=== PATIENT | female | born 1995 | race Two or more races ===

== ENCOUNTER → 2018-06-01 | Outpatient (REF) | payer OTHER | LOC: M SFHCLERA 11:08 | PROVIDERS: ATTEND Physician Assistant | DX: Z87.440 Personal history of urinary (tract) infections (principal) ==

== ENCOUNTER → 2018-07-26 | Outpatient (REF) | payer OTHER ==
[2018-07-26 15:44] LABS: CHLAMYDIA DNA AMPLIFICATION NEGATIVE (NEGATIVE); GC DNA AMPLIFICATION NEGATIVE (NEGATIVE)
== END ==
LOC: M LAB REF 12:04
PROVIDERS: ATTEND Physician Assistant
DX: N76.0 Acute vaginitis (principal)

== ENCOUNTER 2018-10-07 16:11 | Emergency (ER) | payer OTHER ==
[2018-10-07] MEDS ORDERED: AMIT75TA PO (16:18)
[2018-10-07] MEDS ORDERED: CVS1CAP2 PO (16:18)
[2018-10-07] MEDS ORDERED: NEXP1IMP SC (16:20)
[2018-10-07] MEDS: GASTROGRAFIN SOLUTION 30ML PO SCH ×2 (16:45→18:18)
[2018-10-07] MEDS ORDERED: NS 500 ML IV ONE (17:45)
[2018-10-07] MEDS ORDERED: KETOROLAC 30 MG/ML VIAL (J1885) IV ONE (17:45)
[2018-10-07 18:49] LABS: BASO % 0.5 % (0.0-1.0); EOS # 0.1 10^3/uL (0.0-0.50); HEMATOCRIT 41.1 % (36.0-47.0); LYMPH # 2.5 10^3/uL (1.5-6.5); LYMPH % 28.2 % (24.0-44.0); MEAN CORPUSCULAR HEMOGLOBIN 29.1 pg (27.0-33.0); MEAN CORPUSCULAR HGB CONC 31.6 g/dl (32.0-36.5); MEAN CORPUSCULAR VOLUME 91.9 fl (80.0-96.0); MONO # 0.5 10^3/uL (0.0-0.8); MONO % 6.2 % (0.0-5.0); NEUTROPHILS # 5.6 10^3/uL (1.8-7.7); NEUTROPHILS % 63.8 % (36.0-66.0); PLATELET COUNT, AUTOMATED 208 10^3/uL (150-450); RED BLOOD COUNT 4.47 10^6/uL (4.00-5.40); WHITE BLOOD COUNT 8.8 10^3/uL (4.0-10.0)
[2018-10-07 19:09] LABS: ALBUMIN 4.1 GM/DL (3.2-5.2); ALT/SGPT 16 U/L (12-78); BILIRUBIN,TOTAL 0.3 MG/DL (0.2-1.0); BLOOD UREA NITROGEN 16 MG/DL (7-18); CARBON DIOXIDE LEVEL 29 MEQ/L (21-32); CHLORIDE LEVEL 105 MEQ/L (98-107); CREATININE FOR GFR 1.02 MG/DL (0.55-1.30); GLOMERULAR FILTRATION RATE > 60.0 (>60); GLUCOSE, FASTING 83 MG/DL (70-100); POTASSIUM SERUM 4.2 MEQ/L (3.5-5.1); SODIUM LEVEL 139 MEQ/L (136-145)
[2018-10-07] MEDS ORDERED: ISOVUE-370 76% 100ML VIAL (Q9967) As Ordered ONE (19:50)
[2018-10-07] MEDS ORDERED: MORPHINE 4 MG/ML 1ML VIAL/SYRINGE (J2270) IV ONE ×2 (20:15→22:30)
--- NOTE | 2018-10-07 20:53 | REPVR ---
EXAM: CT Abdomen and Pelvis With Contrast EXAM DATE/TIME: 10/07/2018 7:49 PM CLINICAL HISTORY: 22 years old, female; Abdominal pain; Additional info: Ruq, rlq pain TECHNIQUE: Imaging protocol: Axial computed tomography images of the abdomen and pelvis with intravenous contrast. Coronal and sagittal reformatted images were created and reviewed. Radiation optimization: All CT scans at this facility use at least one of these dose optimization techniques: automated exposure control; mA and/or kV adjustment per patient size (includes targeted exams where dose is matched to clinical indication); or iterative reconstruction. Contrast material: ISO 370; Contrast volume: 100 ml; Contrast route: IV; COMPARISON: CT ABD PELVIS WITH CONTRAST 01/16/2016 4:16 AM FINDINGS: ABDOMEN: Liver: There is a right liver cyst measuring 4 mm. There is low attenuation adjacent to the falciform ligament of the liver consistent with focal fatty infiltration. Gallbladder and bile ducts: Normal. No calcified stones. No ductal dilation. Pancreas: Normal. No ductal dilation. Spleen: Normal. No splenomegaly. Adrenals: Normal. No mass. Kidneys and ureters: Normal. No hydronephrosis. Stomach and bowel: Normal. No obstruction. No mucosal thickening. Appendix: A normal appendix is seen. PELVIS: Bladder: Unremarkable as visualized. Reproductive: Large right ovarian cyst with a Hounsfield measurement of 9 measuring approximately 4.9 x 4.8 x 7.6 cm. ABDOMEN and PELVIS: Intraperitoneal space: Normal. No free air. No significant fluid collection. Bones/joints: No acute fracture. No dislocation. Soft tissues: Unremarkable. Vasculature: Normal. No abdominal aortic aneurysm. Lymph nodes: Normal. No enlarged lymph nodes. IMPRESSION: 1. Right ovarian cyst measuring 4.9 x 4.8 x 7.6 cm which is new since 01/16/2016. 2. Otherwise negative CT abdomen/pelvis which is otherwise unchanged from the prior study. COMMENT: Consistent with the [employer]'s Incidental Findings Committee Report (J Am Jose Radiol 2010): Unless the patient's specific circumstances suggest otherwise, any liver lesion 0.5 cm or less, any cystic kidney lesion less than 1.0 cm, and/or any adrenal lesion 1.0 cm or less not otherwise characterized in this report as possessing suspicious or indeterminate imaging features is/are highly likely to be benign and do not require follow-up imaging or biopsy. Electronically signed by: Carlos Brown On 10/07/2018 20:52:53 PM
--- NOTE | 2018-10-07 23:06 | REPVR ---
EXAM: US Pelvis Complete, Transabdominal EXAM DATE/TIME: 10/07/2018 10:59 PM CLINICAL HISTORY: 22 years old, female; Pelvic pain; Additional info: Rlq pain, large R ov cyst, ? torsion TECHNIQUE: Imaging protocol: Real-time transabdominal pelvic ultrasound with image documentation. Complete exam. COMPARISON: US PELVIC NON-OB COMPLETE 01/16/2016 1:08 AM FINDINGS: Uterus/cervix: The uterus measures 6.8 cm in its cephalocaudad dimension and 2.6 x 3.3 cm in its AP and lateral dimensions. The endometrium measures 4-5 mm. Right adnexa: Right ovarian simple cyst measuring 3.4 x 4.0 x 4.3 cm. The right ovary measures 5.3 x 4.7 x 6.5 cm and demonstrates blood flow. Left adnexa: The left ovary measures 2.3 x 3.7 x 2.3 cm and demonstrates blood flow. Free fluid: None. Bladder: The urinary bladder appears normal and measures 5.1 x 7.6 x 10.4 cm. IMPRESSION: 1. Right ovarian simple cyst measuring 3.4 x 4.0 x 4.3 cm. 2. Otherwise negative pelvic sonogram. Electronically signed by: Carlos Brown On 10/07/2018 23:06:12 PM
[2018-10-07] MEDS ORDERED: ONDA4TAB6 PO (23:11)
[2018-10-07] MEDS ORDERED: TYLETAB14 PO ×2 (23:11→23:35)
[2018-10-07] MEDS ORDERED: MACR100C43 PO ×2 (23:11→23:35)
[2018-10-07 23:28] VITALS: BP 115/75
[2018-10-07] MEDS ORDERED: REGL10TA6 PO (23:35)
[2018-10-07] MEDS ORDERED: DIFL150T PO (23:35)
[2018-10-07] MEDS ORDERED: NITROFURANTOIN (MACROBID) 100 MG CAP PO ONE (23:45)
--- NOTE | 2018-10-08 14:59 | ED PDOC ---
Post-Departure Follow-Up ft ronni mccray faxed formal report of ct abd/p for fu Samina Sands MD October 08, 2018 14:59
== END 2018-10-07 23:45 | disposition home or self-care (01) ==
LOC: M ED 16:11
DX: N83.201 Unspecified ovarian cyst, right side (principal); N39.0 Urinary tract infection, site not specified; M79.7 Fibromyalgia; Z79.3 Long term (current) use of hormonal contraceptives; Z88.8 Allergy status to other drugs, medicaments and biological substances
CPT/HCPCS: 74177; 76856; 80053; 81001; 84702; 85025; 87088; 87186; 93976; 96361; 96374; 96375; 96376; 99284; J1885; J2270; Q9963; Q9967

== ENCOUNTER 2018-10-09 12:07 | Emergency (ER) | payer OTHER ==
[~2018-10-09] VITALS: Ht 162.6 cm; Wt 62.5 kg
[~2018-10-09 12:07] MED LIST: AMIT75TA PO; CVS1CAP2 PO; DIFL150T PO; MACR100C43 PO; NEXP1IMP SC; ONDA4TAB6 PO; REGL10TA6 PO; TYLETAB14 PO
[2018-10-09] MEDS ORDERED: ONDANSETRON 4MG/2ML VIAL (J2405) IV ONE (14:00)
[2018-10-09] MEDS ORDERED: NS 1,000 ML IV ONE (14:00)
[2018-10-09] MEDS ORDERED: KETOROLAC 30 MG/ML VIAL (J1885) IV ONE (14:00)
[2018-10-09 14:32] LABS: BASO % 0.4 % (0.0-1.0); EOS # 0.1 10^3/uL (0.0-0.50); EOS % 1.3 % (0.0-3.0); HEMATOCRIT 43.7 % (36.0-47.0); HEMOGLOBIN 13.8 g/dl (12.0-15.5); LYMPH # 2.2 10^3/uL (1.5-6.5); LYMPH % 26.3 % (24.0-44.0); MEAN CORPUSCULAR HEMOGLOBIN 29.4 pg (27.0-33.0); MEAN CORPUSCULAR HGB CONC 31.6 g/dl (32.0-36.5); MEAN CORPUSCULAR VOLUME 93.2 fl (80.0-96.0); MONO # 0.4 10^3/uL (0.0-0.8); NEUTROPHILS # 5.7 10^3/uL (1.8-7.7); NEUTROPHILS % 66.8 % (36.0-66.0); PLATELET COUNT, AUTOMATED 212 10^3/uL (150-450); RED BLOOD COUNT 4.69 10^6/uL (4.00-5.40); WHITE BLOOD COUNT 8.5 10^3/uL (4.0-10.0)
[2018-10-09 14:58] LABS: ALBUMIN 4.4 GM/DL (3.2-5.2); ALT/SGPT 16 U/L (12-78); BILIRUBIN,TOTAL 0.3 MG/DL (0.2-1.0); BLOOD UREA NITROGEN 11 MG/DL (7-18); CALCIUM LEVEL 9.2 MG/DL (8.5-10.1); CARBON DIOXIDE LEVEL 28 MEQ/L (21-32); CHLORIDE LEVEL 106 MEQ/L (98-107); GLOMERULAR FILTRATION RATE > 60.0 (>60); GLUCOSE, FASTING 87 MG/DL (70-100); POTASSIUM SERUM 4.1 MEQ/L (3.5-5.1); SODIUM LEVEL 138 MEQ/L (136-145); TOTAL PROTEIN 8.3 GM/DL (6.4-8.2)
[2018-10-09] MEDS ORDERED: ISOVUE-370 76% 100ML VIAL (Q9967) As Ordered ONE (15:06)
[2018-10-09 16:22] VITALS: BP 109/68
--- NOTE | 2018-10-09 16:31 | REP ---
CT ABDOMEN AND PELVIS WITH ORAL AND IV CONTRAST: TECHNIQUE: Axial contrast enhanced images from the lung bases to the pubic symphysis using 100 mL Isovue 370 intravenous contrast material with multiplanar reformations. COMPARISON: 10/07/2018 The visualized lung bases are clear. The liver demonstrates a subcentimeter hypodensity in the right lobe probably representing a small subcentimeter cyst. The spleen, adrenals, pancreas and kidneys are unremarkable. Gallbladder is grossly unremarkable. I do not see evidence of biliary dilatation. There is no abdominal aortic aneurysm. There is no adenopathy. There is no free air. No bowel wall thickening is seen. There is no evidence of appendicitis. In the pelvis a right ovarian cyst has mildly increased in size since the prior study. It measures approximately 6.7 x 4.3 cm. There is mild adjacent free fluid. No other acute findings are seen. IMPRESSION: Mild increase in size of right ovarian cyst, measuring 6.7 x 4.3 cm. There is mild adjacent free fluid. There is no evidence of appendicitis or other acute finding. Electronically Signed by Reagan Hernandez MD 10/10/2018 03:31 P
== END 2018-10-09 16:43 | disposition home or self-care (01) ==
LOC: M ED 12:07
DX: N39.0 Urinary tract infection, site not specified (principal); N83.291 Other ovarian cyst, right side; R10.31 Right lower quadrant pain; R10.9 Unspecified abdominal pain; R11.0 Nausea; M79.7 Fibromyalgia; N80.9 Endometriosis, unspecified; Z79.899 Other long term (current) drug therapy; Z88.8 Allergy status to other drugs, medicaments and biological substances
CPT/HCPCS: 74177; 80053; 81001; 85025; 87086; 96374; 96375; 99284; J1885; J2405; Q9967

== ENCOUNTER → 2019-09-19 | Outpatient (REF) | payer OTHER | LOC: M LAB REF 21:17 | PROVIDERS: ATTEND Physician Assistant | DX: R30.0 Dysuria (principal) ==

== ENCOUNTER 2019-11-12 15:46 | Emergency (ER) | payer OTHER ==
[~2019-11-12] VITALS: Ht 162.6 cm; Wt 65.9 kg
--- NOTE | 2019-11-12 17:19 | REP ---
Single view chest: 11/12/2019. Indication: Dyspnea. Comparison: None. Findings: The lungs are clear. There is no pleural effusion or pneumothorax. Cardiac silhouette is normal. Impression: Clear lungs. Electronically Signed by Tevin Maria DO 11/12/2019 05:12 P
[2019-11-12 17:20] LABS: BASO % 0.5 % (0.0-1.0); EOS % 0.6 % (0.0-3.0); HEMATOCRIT 35.6 % (36.0-47.0); HEMOGLOBIN 11.3 g/dl (12.0-15.5); LYMPH # 2.3 10^3/uL (1.5-5.0); LYMPH % 35.3 % (24.0-44.0); MEAN CORPUSCULAR HEMOGLOBIN 29.5 pg (27.0-33.0); MEAN CORPUSCULAR HGB CONC 31.7 g/dl (32.0-36.5); MONO # 0.5 10^3/uL (0.0-0.8); MONO % 7.7 % (0.0-5.0); NEUTROPHILS # 3.6 10^3/uL (1.5-8.5); NEUTROPHILS % 55.7 % (36.0-66.0); PLATELET COUNT, AUTOMATED 139 10^3/uL (150-450); RED BLOOD COUNT 3.83 10^6/uL (4.00-5.40); WHITE BLOOD COUNT 6.4 10^3/uL (4.0-10.0)
[2019-11-12 17:45] LABS: BLOOD UREA NITROGEN 12 MG/DL (7-18); CALCIUM LEVEL 8.6 MG/DL (8.5-10.1); CARBON DIOXIDE LEVEL 27 MEQ/L (21-32); CHLORIDE LEVEL 107 MEQ/L (98-107); CREATININE FOR GFR 0.79 MG/DL (0.55-1.30); GLOMERULAR FILTRATION RATE > 60.0 (>60); GLUCOSE, FASTING 70 MG/DL (70-100); POTASSIUM SERUM 3.7 MEQ/L (3.5-5.1); SODIUM LEVEL 140 MEQ/L (136-145)
[2019-11-12 18:45] VITALS: BP 117/78
== END 2019-11-12 19:11 | disposition home or self-care (01) ==
LOC: M ED 15:46
DX: R06.00 Dyspnea, unspecified (principal); F33.9 Major depressive disorder, recurrent, unspecified; M79.7 Fibromyalgia; Z79.899 Other long term (current) drug therapy; Z79.3 Long term (current) use of hormonal contraceptives; Z88.8 Allergy status to other drugs, medicaments and biological substances

== ENCOUNTER → 2020-02-14 | Outpatient (CLI) | payer OTHER ==
[~2020-02-14] MED LIST changes: +PROHANCE 279.3MG/ML 15ML VIAL As Ordered ONE
--- NOTE | 2020-02-19 14:37 | REP ---
MRI PELVIS WITH AND WITHOUT CONTRAST HISTORY: Endometriosis. TECHNIQUE: Multiple sequences obtained of the pelvis in the axial, coronal, and sagittal planes prior to and following the intravenous administration of 12 mL ProHance. Uterine length is approximately 5.6 cm. Endometrial thickness is approximately 6 mm. The junctional zone is somewhat ill-defined with increased signal on T2-weighted images, suggesting early adenomyosis. Uterus is deviated to the left of midline. The ovaries appear normal in size with multiple follicles, virtually all measuring less than 1 cm in diameter. There is a dominant follicle of the left ovary, which demonstrates internal hemorrhagic signal and measures 1.6 cm in maximum diameter. No adnexal mass is seen. Physiologic amount of free fluid is seen in the cul-de-sac. No adenopathy is seen in the pelvis. I see no other abnormalities. IMPRESSION: Junctional zone of the myometrium appears somewhat ill-defined, with mild increased signal on T2-weighted images, suggesting early adenomyosis. Physiologic amount of free fluid in the cul-de-sac. Dominant hemorrhagic follicle left ovary 1.6 cm. Otherwise, no evidence of adnexal mass or adenopathy in the pelvis. [facility]
--- NOTE | 2020-02-19 14:41 | REP ---
MRI OF THE RIGHT HIP CLINICAL HISTORY: Hip pain. FINDINGS: Multiple sequences were obtained in the axial, coronal, and sagittal planes. The osseous structures demonstrate normal bone marrow signal with no bone marrow edema or occult fracture. There is no evidence of avascular necrosis. There is a normal amount of fluid in the hip joint. Anteriorly, there is ill-defined somewhat linear high signal involving the anterior labrum on T2 weighted images suggesting a possible tear of the anterior labrum. Other portions of the labrum are intact. No paralabral cyst is seen. Adjacent soft tissue structures surrounding the hip are unremarkable. I see no other significant finding. IMPRESSION: Findings suspicious for an anterior labral tear. This could be confirmed with an MR arthrogram. [facility]
--- NOTE | 2020-02-19 14:43 | REP ---
LEFT HIP MRI CLINICAL: Hip pain. TECHNIQUE: Multiple sequences obtained in the axial, coronal, and sagittal planes. Visualized osseous structures demonstrate normal bone marrow signal. There is no bone marrow edema or occult fracture. There is no evidence of avascular necrosis. There is a normal amount of joint fluid. On T2-weighted images, the anterior labrum demonstrates ill-defined high signal, which may indicate some degree of fraying of that portion of the labrum. Otherwise, no discrete labral tear is seen. No paralabral cyst is seen. Very small amount of fluid is seen along the lateral aspect of the ischium just above the ischial tuberosity along the musculotendinous junction of the inferior gemellus, with similar very small amount of fluid just inferior to that level along the obturator internus musculotendinous region inferolaterally. This may indicate mild tenosynovitis at these two locations. I see no other significant finding. IMPRESSION: Possible fraying of the anterior labrum. A very small amount of fluid is seen along the musculotendinous junction of the left gemellus inferomedially just above the level of the ischial tuberosity, as well as along the musculotendinous region of the inferolateral obturator internus, just above the ischial tuberosity. These findings may indicate mid tenosynovitis at these two locations. [facility]
== END ==
LOC: M RAD 07:43
PROVIDERS: ATTEND Nurse Practitioner Family
DX: M25.552 Pain in left hip (principal); M25.551 Pain in right hip; N80.9 Endometriosis, unspecified
CPT/HCPCS: 72197; 73721; A9576